=== PATIENT | female | born 1955 | race Two or more races ===

== ENCOUNTER 2021-12-20 06:21 | Emergency (ER) | payer OTHER ==
[~2021-12-20] VITALS: Ht 170.2 cm; Wt 76.2 kg
[2021-12-20 06:32] VITALS: BP 168/97
--- NOTE | 2021-12-20 06:44 | NUR ---
DR. LAW HILL AT PT'S BEDSIDE
== END 2021-12-20 07:00 | disposition home or self-care (01) ==
LOC: ER 06:22
DX: I10 Essential (primary) hypertension (principal)

== ENCOUNTER 2022-07-01 18:34 | Emergency (ER) | payer OTHER ==
[~2022-07-01] VITALS: Ht 175.3 cm; Wt 86.2 kg
--- NOTE | 2022-07-01 18:56 | NUR ---
C/O NON RADIATING PRESSURE LIKE CP X 30 MINS AGO. 4/10 ON SCALE. PT DENIES NAUSEA/VOMITING. DENIES. SOB. AMBULATED TO BED WITH STEADY GAIT. CONNECTED TO MONITOR. EMT AT BEDSIDE FOR EKG.
--- NOTE | 2022-07-01 19:10 | NUR ---
ESTABLISHED IV ACCESS 20G RIGHT AC. BLOOD DRAWN AND SENT TO LAB
[2022-07-01 19:30] LABS: CALCIUM, SERUM 8.8 mg/dL (8.5-10.1); CARBON DIOXIDE 28 mmol/L (21-32); CHLORIDE 105 mmol/L (98-107); CREATININE 0.8 mg/dL (0.6-1.3); GLUCOSE 131 mg/dL (74-106); POTASSIUM 4.1 mmol/L (3.5-5.1); SODIUM SERUM 139 mmol/L (136-145); UREA NITROGEN, BLOOD 14 mg/dL (7-18)
[2022-07-01] MEDS ORDERED: ASPIRIN 325 MG TABLET PO ONE (19:30)
--- NOTE | 2022-07-01 19:34 | NUR ---
REPORT GIVEN TO CLEM PEREZ FOR LEONARDO
[2022-07-01] MEDS ORDERED: ASPIRIN 325 MG TABLET ONE (19:39)
[2022-07-01 19:43] LABS: ALANINE AMINOTRANSFERASE 33 U/L (12-78); ALBUMIN 3.7 g/dL (3.4-5.0); ALKALINE PHOSPHATASE 85 U/L (46-116); ASPARTATE AMINOTRANSFERASE 21 U/L (15-37); BILIRUBIN,DIRECT 0.2 mg/dL (0.0-0.2); BILIRUBIN,TOTAL 0.6 mg/dL (0.2-1.0); TOTAL PROTEIN, SERUM 7.9 g/dL (6.4-8.2)
--- NOTE | 2022-07-01 19:55 | NUR ---
PT IN BED AAOX4. NOT IN RESP DISTRESS. BREATHING EVEN AND UNLABORED. FAMILY AT BEDSIDE.
[2022-07-01 20:19] LABS: BASOPHILS % (AUTO) 0.2 % (0.0-2.0); EOSINOPHILS % (AUTO) 0.6 % (0.0-6.0); HEMATOCRIT 37 % (33-45); HEMOGLOBIN 11.3 g/dL (11.5-14.8); LYMPHOCYTES # (AUTO) 2.5 K/uL (0.8-4.8); LYMPHOCYTES % (AUTO) 33.6 % (20.0-44.0); MEAN CORPUSCULAR HGB CONC 31 g/dl (31.0-36.0); MEAN CORPUSCULAR VOLUME 94 fL (82-100); MONOCYTES # (AUTO) 0.5 K/uL (0.1-1.30); MONOCYTES % (AUTO) 6.5 % (2.0-12.0); NEUTROPHILS # (AUTO) 4.3 K/uL (1.8-8.9); NEUTROPHILS % (AUTO) 59.1 % (43.0-81.0); PLATELET COUNT (AUTO) 124 K/uL (150-450); RED BLOOD CELL COUNT(AUTO) 3.92 MIL/uL (4.0-5.2); WHITE BLOOD COUNT (AUTO) 7.3 K/uL (4.3-11.0)
[2022-07-01 22:26] LABS: BAND % (MANUAL) 4 % (0.0-5.0); LYMPHOCYTES % (MANUAL) 31 % (16-48); MONOCYTES % (MANUAL) 8 % (0-11.0); NEUTROPHILS % (MANUAL) 53 (42-76); REACTIVE LYMPHOCYTES 4 % (0-0)
--- NOTE | 2022-07-01 23:20 | NUR ---
IV removed. Catheter intact and site benign. Pressure and 4x4 applied to site. No bleeding noted.
--- NOTE | 2022-07-01 23:20 | NUR ---
Patient discharged to home in stable condition. Written and verbal after care instructions given pt and family member. Patient and family member verbalizes understanding of instruction.
[2022-07-02 01:08] VITALS: BP 152/90
== END 2022-07-02 01:09 | disposition home or self-care (01) ==
LOC: ER 18:39
DX: R07.9 Chest pain, unspecified (principal); I10 Essential (primary) hypertension
CPT/HCPCS: 36415; 71045-TC; 80048-TC; 80076-TC; 83880; 84484-TC; 85025-TC

== ENCOUNTER 2022-10-15 09:27 | Emergency (ER) | payer OTHER ==
[~2022-10-15] VITALS: Ht 172.7 cm; Wt 84.4 kg
--- NOTE | 2022-10-15 10:05 | NUR ---
PT BIBS C/O SWOLLEN LIPS AND LEFT ARM SINCE LAST NIGHT AFTER DRINKING HYDRATION MULTIPLIER, TOOK BENADRYL AND WENT TO [facility]RG[facility]. DENIES SOB, NAUSEA NOR VOMITING.
--- NOTE | 2022-10-15 10:10 | NUR ---
DR PAIGE AT BED SIDE FOR EVAL, PER VO GAIVE 125 SOLUMEDROL AND BENADRYL 50MG IM
[2022-10-15] MEDS ORDERED: methylPREDNISolone SOD SUCC 40 MG/ML VIAL ONE (10:12)
[2022-10-15] MEDS ORDERED: diphenhydrAMINE HCL 50 MG/ML VIAL ONE (10:12)
[2022-10-15] MEDS ORDERED: methylPREDNISolone SOD SUCC 125 MG/2ML VIAL ONE (10:15)
--- NOTE | 2022-10-15 10:23 | NUR ---
GIVEN BENADRL 50MG AND SOLUMEDROL 125MG IM ON BOTH DELTOIDS. WELL TOLERATED
[2022-10-15] MEDS ORDERED: methylPREDNISolone SOD SUCC 125 MG/2ML VIAL IM ONE (10:30)
[2022-10-15] MEDS ORDERED: diphenhydrAMINE HCL 50 MG/ML VIAL IM ONE (10:30)
--- NOTE | 2022-10-15 10:36 | NUR ---
PT MADE COMFORTABLE TO BED, PUT ON MONITORS.
[2022-10-15] MEDS ORDERED: PRED20TA PO (13:35)
[2022-10-15] MEDS ORDERED: EPIN0.3P3 IM (13:35)
[2022-10-15 13:43] VITALS: BP 130/75
== END 2022-10-15 13:44 | disposition home or self-care (01) ==
LOC: ER 09:31
DX: T78.3XXA Angioneurotic edema, initial encounter (principal); I10 Essential (primary) hypertension; Z79.899 Other long term (current) drug therapy
CPT/HCPCS: 99284; 96372 ×2; J1200; J2930; J2920